=== PATIENT | male | born 1985 | race Caucasian/White ===

== ENCOUNTER 2019-01-11 08:48 | Emergency (ER) | payer SELFPAY ==
--- NOTE | 2019-01-11 09:32 | ED ---
GI/ HPI - HPI Summary HPI Summary: This patient is a 33 year old M presenting to [facility] accompanied by female friend with a chief complaint of pain and enlarged right testicle starting 3 days ago with swelling starting 2 days ago. Pt reports redness, warm. Symptoms aggravated by walking and movement. Symptoms alleviated by rest, bath with ice. Patient reports heavy lifting during job. Denies MHx hernia. Female friend reports pinching testicle 4 days ago but pt reports it did not hurt then. Denies pain or blood in urine. Father had diabetes. - History of Current Complaint Chief Complaint: EDUrogenitalProblems Time Seen by Provider: 01/11/19 08:54 Stated Complaint: RT TESTICLE SWOLLEN PER PT Hx Obtained From: Patient, Other: - female friend Onset/Duration: Started Days Ago, Still Present Timing: Constant Pain Intensity: 8 Additional Locations for Males: Testicles Associated Signs and Symptoms: Negative: Hematuria, Dysuria Additional Signs & Symptoms: Positive: Penile Swelling Aggravating Factor(s): Movement, Walking/Exertion Alleviating Factor(s): Ice, Rest - Allergy/Home Medications Allergies/Adverse Reactions: Allergies Allergy/AdvReac Type Severity Reaction Status Date / Time No Known Allergies Allergy Verified 01/11/19 08:53 PMH/Surg Hx/FS Hx/Imm Hx Endocrine/Hematology History: Reports: Other Endocrine/Hematological Disorders - acid reflux Denies: Hx Diabetes GI History: Denies: Hx Hiatal Hernia - Surgical History Surgery Procedure, Year, and Place: none Infectious Disease History: No Infectious Disease History: Denies: Traveled Outside the [place] in Last 30 Days - Family History Known Family History: Positive: Diabetes - Social History Alcohol Use: Occasionally Hx Substance Use: No Substance Use Type: Reports: None Hx Tobacco Use: Yes Smoking Status (MU): Former Smoker Review of Systems Negative: Fever Positive: other - pain and enlarged right testicle, swelling in testicle. Negative: dysuria, hematuria All Other Systems Reviewed And Are Negative: Yes Physical Exam - Summary Physical Exam Summary: Constitutional: Well-developed, Well-nourished, Alert. (-) Distressed Skin: Warm, Dry HENT: Normocephalic; Atraumatic Eyes: Conjunctiva normal Neck: Musculoskeletal ROM normal neck. (-) JVD, (-) Stridor Cardio: Rhythm regular, rate normal, Heart sounds normal Pulmonary/Chest wall: Effort normal. (-) Respiratory distress Abd: Soft, (-) tenderness, (-) Distension, (-) Guarding, (-) Rebound : deferred (done by Dr. Barron) Musculoskeletal: (-) Edema Neuro: Alert, Oriented x3 Psych: Mood and affect Normal Triage Information Reviewed: Yes Vital Signs On Initial Exam: Initial Vitals Temp Pulse Resp BP Pulse Ox 97.0 F 94 14 148/84 99 01/11/19 08:49 01/11/19 08:49 01/11/19 08:49 01/11/19 08:49 01/11/19 08:49 Vital Signs Reviewed: Yes Procedures - Sedation Patient Received Moderate/Deep Sedation with Procedure: No Diagnostics - Vital Signs Vital Signs Temp Pulse Resp BP Pulse Ox 01/11/19 08:49 97.0 F 94 14 148/84 99 - Laboratory Lab Statement: Any lab studies that have been ordered have been reviewed, and results considered in the medical decision making process. Re-Evaluation - Re-Evaluation First Eval Re-Evaluation Time: 10:40 Comment: US c/w epididymitis. Patient treated for gonorrhea and chlamydia, STD tests pending. Advised patient to have partner treated as well. GIGU Course/Dx - Course Course Of Treatment: 33 y/o male p/w R testicular pain. - ddx includes: epididymitis, hernia, varicocele, less likely torsion. - US and history c/w epididymitis. exam performed by Dr. Barron at patient request. - Diagnoses Provider Diagnoses: Acute epididymitis Discharge ED - Sign-Out/Discharge Documenting (check all that apply): Patient Departure - discharge - Discharge Plan Condition: Stable Disposition: HOME Prescriptions: DOXYcycline CAP(*) [DOXYcycline 100MG CAP(*)] 100 mg PO BID 10 Days #20 cap Patient Education Materials: Epididymitis (ED) Referrals: No Primary Care Phys,NOPCP [Primary Care Provider] - Additional Instructions: You were seen in the emergency department for testicular pain. Your ultrasound showed epididymitis, inflammation which often caused by an STD. We covered you for gonorrhea and chlamydia. Please have any sexual partners treated for STDs If any studies were not completed at the time of discharge you will be called with the relevant results. Please follow up with your primary care doctor in next 2-3 days and return to emergency department for worsening or concerning symptoms. It was a pleasure taking care of you today. - Billing Disposition and Condition Condition: STABLE Disposition: Home - Attestation Statements Document Initiated by Lorrie: Yes Documenting Scribe: Lisa Celestin Provider For Whom Lorrie is Documenting (Include Credential): Dr. Araceli Escobedo MD Scribe Attestation: ILisa, scribed for Dr. Araceli Escobedo MD on 01/11/19 at 1046. Scribe Documentation Reviewed: Yes Provider Attestation: The documentation as recorded by the Lisa babin accurately reflects the service I personally performed and the decisions made by me, Dr. Araceli Escobedo MD Status of Scribe Document: Viewed
--- NOTE | 2019-01-11 10:10 | ED ---
Progress - Progress Note Progress Note: This 33 year old male is currently Dr. Escobedo's patient here for right testicular pain, however the patient requested a male physician for testicular exam. He states swelling and redness started 2-3 days ago. His girlfriend says she was massaging it the day before and she may have pinched it. He states the pain is constant but moving around makes it worse. He denies any discharge or urinary systems. His girlfriend states he is uncircumcised and he may not wash it well. Physical Exam Constitutional: Well-developed, Well-nourished, Alert. (-) Distressed Skin: Warm, Dry HENT: Normocephalic; Atraumatic Eyes: Conjunctiva normal Neck: Musculoskeletal ROM normal neck. (-) JVD, (-) Stridor, (-) Tracheal deviation Cardio: Rhythm regular, rate normal, Heart sounds normal; Intact distal pulses; Radial pulses are 2+ and symmetric. (-) Murmur Pulmonary/Chest wall: Effort normal. (-) Respiratory distress, (-) Wheezes, (-) Rales Abd: Soft, (-) tenderness, (-) Distension, (-) Guarding, (-) Rebound Musculoskeletal: (-) Edema Lymph: (-) Cervical adenopathy Neuro: Alert, Oriented x3 Psych: Mood and affect Normal Testicular: Right testicle has scrotal erythema, tenderness at the epididymal head, bilateral cremasteric reflex. No discharge, no penile lesions. Re-Evaluation - Re-Evaluation First Eval Re-Evaluation Time: 10:40 Comment: US c/w epididymitis. Patient treated for gonorrhea and chlamydia, STD tests pending. Advised patient to have partner treated as well. Course/Dx - Course Course Of Treatment: This 33 year old male is currently Dr. Escobedo's patient here for right testicular pain, however the patient requested a male physician for testicular exam. He states swelling and redness started 2-3 days ago. His girlfriend says she was massaging it the day before and she may have pinched it. He states the pain is constant but moving around makes it worse. He denies any discharge or urinary systems. His states he is uncircumcised and he may not wash it as much as he should. Physical Exam. Constitutional: Well- developed, Well-nourished, Alert. (-) Distressed. Skin: Warm, Dry. HENT: Normocephalic; Atraumatic. Eyes: Conjunctiva normal. Neck: Musculoskeletal ROM normal neck. (-) JVD, (-) Stridor, (-) Tracheal deviation. Cardio: Rhythm regular, rate normal, Heart sounds normal; Intact distal pulses; Radial pulses are 2+ and symmetric. (-) Murmur. Pulmonary/Chest wall: Effort normal. (-) Respiratory distress, (-) Wheezes, (-) Rales. Abd: Soft, (-) tenderness, (-) Distension, (-) Guarding, (-) Rebound. Musculoskeletal: (-) Edema. Lymph: (-) Cervical adenopathy. Neuro: Alert, Oriented x3. Psych: Mood and affect Normal. Testicular: Right testicle has scrotal erythema, tenderness at the epididymal head, bilateral cremesteric reflex. No discharge, no penile lesions. - Diagnoses Provider Diagnoses: Acute epididymitis Discharge ED - Sign-Out/Discharge Documenting (check all that apply): Sign-Out Patient, Receiving Sign-Out Signing out patient TO: Araceli Escobedo Receiving patient FROM: Araceli Escobedo - Discharge Plan Condition: Stable Disposition: HOME Prescriptions: DOXYcycline CAP(*) [DOXYcycline 100MG CAP(*)] 100 mg PO BID 10 Days #20 cap Patient Education Materials: Epididymitis (ED) Referrals: [facility] [Outside] - 3 Days Additional Instructions: You were seen in the emergency department for testicular pain. Your ultrasound showed epididymitis, inflammation which often caused by an STD. We covered you for gonorrhea and chlamydia. Please have any sexual partners treated for STDs If any studies were not completed at the time of discharge you will be called with the relevant results. Please follow up with your primary care doctor in next 2-3 days and return to emergency department for worsening or concerning symptoms. It was a pleasure taking care of you today. - Billing Disposition and Condition Condition: STABLE Disposition: Home - Attestation Statements Document Initiated by Scribe: Yes Documenting Scribe: Endy Sandy Provider For Whom Scribe is Documenting (Include Credential): Mejia Barron MD Scribe Attestation: I, Endy Sandy, scribed for Mejia Barron MD on 01/11/19 at 1110. Scribe Documentation Reviewed: Yes Provider Attestation: The documentation as recorded by the scribe, Endy Sandy accurately reflects the service I personally performed and the decisions made by me, Mejia Barron MD Status of Scribe Document: Viewed
[2019-01-11] MEDS ORDERED: cefTRIAXone VIAL(*) 250 MG VIAL IM ONE (10:33)
[2019-01-11] MEDS ORDERED: Lidocaine 1% MPF ** 5 ML VIAL IM ONE (10:33)
[2019-01-11] MEDS ORDERED: DOXYcycline CAP(*) 100 MG PO ONE (10:34)
[2019-01-11 11:10] LABS: Urine Appearance Cloudy; Urine Bacteria Absent (Absent); Urine Bilirubin Negative (Negative); Urine Blood 2+ (Negative); Urine Color Yellow; Urine Glucose Negative (Negative); Urine Ketones Negative (Negative); Urine Nitrite Negative (Negative); Urine Protein 1+(30 mg/dL) (Negative); Urine Red Blood Cell 3+(>10/hpf) (Absent); Urine Specific Gravity 1.026 (1.010-1.030); Urine Squamous Epithelial Cell Present (Absent); Urine Urobilinogen Negative (Negative); Urine White Blood Cell 3+(>20/hpf) (Absent)
[2019-01-11 11:30] VITALS: BP 127/76
[2019-01-13 13:44] LABS: Chlamydia trachomatis NAA Positive (Negative); Neisseria gonorrhoeae (GC) NAA Negative (Negative)
--- NOTE | 2019-01-13 15:19 | ED ---
Imaging and Labs Follow Up Follow Up Type: Labs/Cultures Labs/Culture Result: Positive chlamydia. Patient Communication/Plan: Pt. tx with rocephin and doxycycline. I called and spoke with pt. today at 1515 and discussed results. Advised all sexual partners need tested and treated. Pt. understands and agrees with plan. Provider Diagnoses: Acute epididymitis
== END 2019-01-11 10:57 | disposition home or self-care (01) ==
LOC: ED 08:48
DX: N45.1 Epididymitis (principal); Z87.891 Personal history of nicotine dependence
CPT/HCPCS: 76870; 81003; 81015; 87086; 87491; 87591; 96372; 99282; A9270-GY; J0696